=== PATIENT | male | born 1990 ===

== ENCOUNTER 2016-08-06 19:56 | Emergency (ER) | payer BC ==
[2016-08-06 19:56] VITALS: BMI 26.2
[2016-08-06 20:33] VITALS: BP 138/56; PULSE 72; RESP 20; TEMP 98.2; O2SAT 100
--- NOTE | 2016-08-06 22:06 | ED PDOC ---
HPI: General Adult Time Seen by Provider: 08/06/16 20:52 Chief Complaint (Nursing): Lower Extremity Problem/Injury Chief Complaint (Provider): right leg pain History Per: Patient History/Exam Limitations: no limitations Additional Complaint(s): 26yo male was hit by a piece of metal at work 5 days ago in the right leg. Patient was seen in the work clinic through workmen's compensation and was told to return to work the next day. He was given Clindamycin PO which he was taking but he was seen again today and it was changed to a sulfa antibiotic. Patient was also seen by Dr. Cottrell today and was told to go to work tomorrow. Patient is now here because he wants a 3rd opinion and pain has not resolved. There is no drainage. He is taking Ibuprofen 400mg every 6 hours. Last taken this morning at 0800. Past Medical History Vital Signs: Last Vital Signs Temp 98.2 F 08/06/16 20:26 Pulse 72 08/06/16 20:26 Resp 20 08/06/16 20:26 BP 138/56 L 08/06/16 20:26 Pulse Ox 100 08/11/16 16:48 - Medical History PMH: HTN Denies: Chronic Kidney Disease - Family History Family History: States: Unknown Family Hx - Home Medications Home Medications: Ambulatory Orders Medication Instructions Recorded Naproxen [Naprosyn Tab] 500 mg PO BID PRN #20 tab 08/06/16 - Allergies Allergies/Adverse Reactions: Allergies Allergy/AdvReac Type Severity Reaction Status Date / Time Penicillins Allergy RASH Verified 05/09/15 09:05 Review of Systems ROS Statement: Except As Marked, All Systems Reviewed And Found Negative Musculoskeletal: Positive for: Leg Pain Physical Exam - Reviewed Nursing Documentation Reviewed: Yes Vital Signs Reviewed: Yes - Physical Exam Appears: Positive for: Well, Non-toxic, No Acute Distress Head Exam: Positive for: ATRAUMATIC, NORMAL INSPECTION, NORMOCEPHALIC Skin: Positive for: Warm, Dry Eye Exam: Positive for: EOMI, PERRL Cardiovascular/Chest: Positive for: Regular Rate, Rhythm Respiratory: Positive for: Normal Breath Sounds. Negative for: Rales, Rhonchi, Wheezing Pulses-Dorsalis Pedis (L): 2+ Extremity: Positive for: Normal ROM, Tenderness, Capillary Refill (<2 sec), Other (anterior lower extremity, right: abrasion with surrounding induration, tenderness to palpation, no crepitus, no fluctuance, no discharge, no bleeding, warm to touch ). Negative for: Pedal Edema, Calf Tenderness, Deformity, Swelling Neurologic/Psych: Positive for: Alert. Negative for: Motor/Sensory Deficits - Laboratory Results Result Diagrams: 08/06/16 22:15 08/06/16 22:15 - ECG O2 Sat by Pulse Oximetry: 100 (RA) Pulse Ox Interpretation: Normal - CT Scan/US RLE Doppler Other Rad Studies (CT/US): Radiology Report Reviewed (No evidence of DVT within RIGHT lower extremity. ) Medical Decision Making Medical Decision Makin Advised patient he can take Ibuprofen 600mg every 6 hours. US Right lower extremity, labs, vancomycin, toradol ordered. Disposition - Clinical Impression Clinical Impression: Cellulitis of right lower extremity - Disposition Disposition: Routine/Home Disposition Time: 23:43 Condition: IMPROVED Additional Instructions: CONTINUE BACTRIM DS. FOLLOW-UP WITH PMD WITHIN 2 DAYS FOR REEVALUATION. Prescriptions: Naproxen [Naprosyn Tab] 500 mg PO BID PRN #20 tab PRN Reason: Pain Instructions: Cellulitis (ED) Forms: [facility] ED School/Work Excuse Print Language: AUSTRIAN Additional Comments - Additional Comments Additional Comments: Scribe Attestation: Documented by Ronnie King acting as a scribe for Phu Cota MD. Scribe Attestation: All medical record entries made by the Scribe were at my direction and personally dictated by me. I have reviewed the chart and agree that the record accurately reflects my personal performance of the history, physical exam, medical decision making, and the department course for this patient. I have also personally directed, reviewed, and agree with the discharge instructions and disposition.
[2016-08-06] MEDS ORDERED: Vancomycin 1 g Inj ONE (22:24)
[2016-08-06 22:33] LABS: BASO % 0.5 % (0.0-2.0); EOS # 0.2 K/uL (0.0-0.7); EOS % 1.7 % (0.0-4.0); HEMATOCRIT 49.7 % (35.0-51.0); LYMPH # 2.9 K/uL (1.0-4.3); LYMPH % 32.7 % (20.0-40.0); MEAN CELL VOLUME 90.4 fl (80.0-94.0); MEAN CORPUSCULAR HEMOGLOBIN 30.3 pg (27.0-31.0); MEAN CORPUSCULAR HGB CONC 33.5 g/dL (33.0-37.0); MEAN PLATELET VOLUME 9.1 fl (7.2-11.7); MONO # 0.9 K/uL (0.0-0.8); MONO % 9.8 % (0.0-10.0); NEUT # 4.9 K/uL (1.8-7.0); NEUT % 55.3 % (50.0-75.0); NRBC % 0.1 % (0.0-0.0); RED CELL DISTRIBUTION WIDTH 12.8 % (11.5-14.5); WHITE BLOOD COUNT 8.9 K/uL (4.8-10.8)
[2016-08-06 22:36] LABS: ALB/GLOB RATIO 1.4 (1.0-2.1); ALKALINE PHOSPHATASE 57 U/L (38-126); ALT/SGPT 80 U/L (21-72); AST/SGOT 46 U/L (17-59); BILIRUBIN,TOTAL 0.4 mg/dl (0.2-1.3); BLOOD UREA NITROGEN 19 mg/dl (9-20); CALCIUM 9.8 mg/dL (8.4-10.2); CARBON DIOXIDE 28 mmol/L (22-30); CHLORIDE 101 mmol/L (98-107); GFR AFRICAN-AMERICAN > 60; GLUCOSE,RANDOM 92 mg/dL (75-110); POTASSIUM 4.4 MMOL/L (3.6-5.0); SODIUM 143 mmol/l (132-148)
--- NOTE | 2016-08-06 23:41 | US ---
EXAM: US Duplex Right Lower Extremity Veins CLINICAL HISTORY: 26 years old, male; Pain; Leg, lower; Right; Additional info: Rle pain S/P injury TECHNIQUE: Real-time ultrasound scan of the veins of the right lower extremity with color Doppler flow, spectral waveform analysis and compression. COMPARISON: No relevant prior studies available. FINDINGS: Deep veins: Normal color and spectral Doppler flow. Normal compressibility. No deep vein thrombosis from common femoral to popliteal vein. Superficial veins: No thrombosis. Soft tissues: No popliteal cyst. IMPRESSION: 1. No evidence of DVT within RIGHT lower extremity. 2. Incidental/non-acute findings are described above.
== END 2016-08-07 00:25 | disposition home or self-care (01) ==
LOC: H.ER 19:56
DX: L03.115 Cellulitis of right lower limb (principal); M79.604 Pain in right leg; Z88.0 Allergy status to penicillin; I10 Essential (primary) hypertension
CPT/HCPCS: 80053; 85025; 87040; 93971; 96365; 96366; 99283; J1885

== ENCOUNTER 2017-01-04 20:36 | Emergency (ER) | payer BC ==
[2017-01-04 20:36] VITALS: BMI 26.2
[2017-01-04 20:47] VITALS: TEMP 98.9
--- NOTE | 2017-01-04 22:07 | ED PDOC ---
HPI: Chest Pain Time Seen by Provider: 01/04/17 21:30 Chief Complaint (Nursing): Chest Pain Chief Complaint (Provider): Chest Pain History Per: Patient History/Exam Limitations: no limitations Onset/Duration Of Symptoms: Days (x1) Current Symptoms Are (Timing): Still Present Additional Complaint(s): Kelby Olivares is a 26 year old male with previous medical history of hypertension and peptic ulcer disease, who presents to the emergency department with a complaint of substernal "burning" chest pain associated with epigastric pain, nasuea and vomiting ongoing for 1 day. Denied any fever or chills. PMD: Ashkan Javier MD Past Medical History Reviewed: Historical Data, Nursing Documentation, Vital Signs Vital Signs: Last Vital Signs Temp 98.9 F 01/04/17 20:45 Pulse 64 01/04/17 22:14 Resp 18 01/04/17 22:14 BP 125/77 01/04/17 22:14 Pulse Ox 98 01/04/17 22:14 - Medical History PMH: Gastrointestinal Ulcer, HTN Denies: Chronic Kidney Disease - Family History Family History: States: Unknown Family Hx - Social History Current smoker - smoking cessation education provided: No Ex-Smoker (has not smoked in the last 12 months): No Alcohol: None Drugs: Denies - Home Medications Home Medications: Ambulatory Orders Medication Instructions Recorded Naproxen [Naprosyn Tab] 500 mg PO BID PRN #20 tab 08/06/16 Esomeprazole Magnesium [Nexium] 40 mg PO DAILY #28 ecc 01/05/17 - Allergies Allergies/Adverse Reactions: Allergies Allergy/AdvReac Type Severity Reaction Status Date / Time Penicillins Allergy RASH Verified 05/09/15 09:05 Review of Systems Constitutional: Negative for: Fever, Chills Cardiovascular: Positive for: Chest Pain (substernal "burning") Gastrointestinal: Positive for: Nausea, Vomiting, Abdominal Pain (epigastric) Physical Exam - Reviewed Nursing Documentation Reviewed: Yes Vital Signs Reviewed: Yes - Physical Exam Appears: Positive for: Well, Non-toxic, No Acute Distress Head Exam: Positive for: ATRAUMATIC, NORMAL INSPECTION, NORMOCEPHALIC ENT: Positive for: Normal ENT Inspection Cardiovascular/Chest: Positive for: Regular Rate, Rhythm. Negative for: Chest Non Tender Respiratory: Positive for: Normal Breath Sounds, Accessory Muscle Use. Negative for: Decreased Breath Sounds, Crackles, Rales, Rhonchi, Respiratory Distress Gastrointestinal/Abdominal: Positive for: Soft, Tenderness (mild epigastric). Negative for: Normal Exam, Mass Back: Positive for: Normal Inspection. Negative for: L CVA Tenderness, R CVA Tenderness Extremity: Positive for: Normal ROM. Negative for: Tenderness, Pedal Edema, Deformity Neurologic/Psych: Positive for: Alert, Oriented - Laboratory Results Result Diagrams: 01/04/17 22:07 01/04/17 22:50 - ECG O2 Sat by Pulse Oximetry: 100 (RA) Pulse Ox Interpretation: Normal Medical Decision Making Medical Decision Making: Initial Impression: Epigastric pain; chest pain; hypertension Initial Plan: * EKG * Alcohol serum * CMP * Drug screen, urine * Lipase * CBC * CXR * Pepcid 20mg IV * Zofran INJ 4mg IV * Urinalysis Time: 23:30 Clinical Impression: Atypical Chest Pain --Labs reviewed with no clinically significant abnormalities --CXR showed no acute disease --Patient reports improvement in symptoms --Medically stable for discharge --Patient will follow up with PMD for possible GI referral --Discharged with Rx for Nexium for reflux Scribe Attestation: Documented by Lolis Moreno and Chidi Dailey, acting as a scribe for Scott Tovar MD. Provider Scribe Attestation: All medical record entries made by the Scribe were at my direction and personally dictated by me. I have reviewed the chart and agree that the record accurately reflects my personal performance of the history, physical exam, medical decision making, and the department course for this patient. I have also personally directed, reviewed, and agree with the discharge instructions and disposition. Disposition - Clinical Impression Clinical Impression: Atypical chest pain - Patient ED Disposition Is Patient to be Admitted: No Counseled Patient/Family Regarding: Studies Performed, Diagnosis, Need For Followup, Rx Given - Disposition Disposition: Routine/Home Disposition Time: 23:30 Condition: STABLE Prescriptions: Esomeprazole Magnesium [Nexium] 40 mg PO DAILY #28 ecc Instructions: Gastroesophageal Reflux Disease (ED), Noncardiac Chest Pain (ED) Forms: [employer] (Greenlandic) Print Language: ARMENIAN
[2017-01-04 23:05] LABS: BASO % 0.5 % (0.0-2.0); EOS # 0.4 K/uL (0.0-0.7); LYMPH # 3.2 K/uL (1.0-4.3); LYMPH % 40.6 % (20.0-40.0); MEAN CELL VOLUME 89.7 fl (80.0-94.0); MEAN CORPUSCULAR HEMOGLOBIN 29.7 pg (27.0-31.0); MEAN CORPUSCULAR HGB CONC 33.1 g/dL (33.0-37.0); MEAN PLATELET VOLUME 9.2 fl (7.2-11.7); MONO # 0.7 K/uL (0.0-0.8); MONO % 8.9 % (0.0-10.0); NEUT # 3.6 K/uL (1.8-7.0); NRBC % 0.1 % (0.0-0.0); RED CELL DISTRIBUTION WIDTH 13.3 % (11.5-14.5)
[2017-01-04 23:06] VITALS: BP 125/77; PULSE 64; RESP 18
[2017-01-04 23:15] LABS: ALB/GLOB RATIO 1.6 (1.0-2.1); ALCOHOL SERUM < 10 mg/dl (0-10); ALKALINE PHOSPHATASE 48 U/L (38-126); ALT/SGPT 86 U/L (21-72); AST/SGOT 42 U/L (17-59); BILIRUBIN,TOTAL 0.5 mg/dl (0.2-1.3); BLOOD UREA NITROGEN 18 mg/dl (9-20); CALCIUM 9.6 mg/dL (8.4-10.2); CARBON DIOXIDE 26 mmol/L (22-30); CHLORIDE 102 mmol/L (98-107); GFR AFRICAN-AMERICAN > 60; GLUCOSE,RANDOM 97 mg/dL (75-110); LIPASE 96 U/L (23-300); POTASSIUM 4.3 MMOL/L (3.6-5.0); SODIUM 142 mmol/l (132-148); TOTAL PROTEIN 7.5 G/DL (6.3-8.2)
[2017-01-04 23:37] LABS: URINE BACTERIA RARE (<OCC); URINE BILIRUBIN NEGATIVE (NEGATIVE); URINE BLOOD NEGATIVE (NEGATIVE); URINE COLOR YELLOW (YELLOW); URINE GLUCOSE (UA) NEG (Normal); URINE KETONE NEGATIVE (NEGATIVE); URINE LEUKOCYTE ESTERASE NEG Leu/uL (Negative); URINE PROTEIN NEGATIVE (NEGATIVE); URINE UROBILINOGEN 0.2-1.0 mg/dL (0.2-1.0)
[2017-01-04 23:39] LABS: RBC URINE 2 /hpf (0-3); WBC URINE 5 /hpf (0-5)
[2017-01-05 00:23] VITALS: O2SAT 100
--- NOTE | 2017-01-05 10:31 | RAD ---
HISTORY: chest pain COMPARISON: No prior. FINDINGS: LUNGS: No active pulmonary disease. PLEURA: No significant pleural effusion identified, no pneumothorax apparent. CARDIOVASCULAR: Normal. OSSEOUS STRUCTURES: No significant abnormalities. VISUALIZED UPPER ABDOMEN: Normal. OTHER FINDINGS: None. IMPRESSION: Suboptimal study due to the patient's body habitus. No evidence of acute pulmonary disease. Baseline portable exam.
--- NOTE | 2017-01-05 13:30 | CARD ---
APPROVED REPORT EKG Measurement Heart [id number] <Conclusion> Normal sinus rhythm Normal ECG
== END 2017-01-05 00:20 | disposition home or self-care (01) ==
LOC: H.ER 20:36
DX: R07.89 Other chest pain (principal); I10 Essential (primary) hypertension; Z88.0 Allergy status to penicillin
CPT/HCPCS: 71010; 80053; 81003; 83690; 85025; 93005; 96374; 96375; 99283; G0480; J2405